=== PATIENT | male | born 1960 | race Caucasian/White ===

== ENCOUNTER 2018-06-19 17:03 | Emergency (ER) | payer BC, OTHER ==
[2018-06-19] MEDS ORDERED: Sodium Chloride 0.9% 10 ML Syringe FLUSH PRN (17:09)
--- NOTE | 2018-06-19 17:23 | EDM.PDOC ---
ED HPI GENERAL MEDICAL PROBLEM - General Chief Complaint: Abdominal Pain Stated Complaint: STOMACH PAIN Time Seen by Provider: 06/19/18 17:05 Source of Information: Reports: Patient, Family, RN, RN Notes Reviewed History Limitations: Reports: No Limitations - History of Present Illness INITIAL COMMENTS - FREE TEXT/NARRATIVE: Patient presents to the emergency room at [facility] for the evaluation of abdominal pain that started earlier this morning. The patient states that he had lower abdominal pelvic cramping and he really didn't think anything of it until after he ate some food from [employer]. The patient states that his pain now is located in the right upper quadrant and around the umbilicus. The patient does have a history of an umbilical hernia which was repaired last year. The patient has not had any fevers or chills. The pain is colicky in nature. The patient denies any diarrhea or vomiting. The patient has not had any changes in medications. The patient denies any shortness of breath or chest pain. The patient did try taking Pepto-Bismol without any relief. Otherwise no other concerns today. Onset: Today Onset Date: 06/19/18 Abdominal Pain Score (Numeric/FACES): 9 - Related Data Allergies Allergy/AdvReac Type Severity Reaction Status Date / Time No Known Allergies Allergy Verified 05/15/15 10:02 Home Meds: Home Meds Aspirin [Jamar Chewable] 81 mg PO QAM 06/20/14 [History] Fish Oil/[place]-3 Fatty Acids [Fish Oil] 1 gm PO QAM 06/20/14 [History] Omeprazole [Prilosec] 40 mg PO QAM 06/20/14 [History] Diclofenac Sodium [Voltaren] 75 mg DAILY 06/19/18 [History] Losartan/Hydrochlorothiazide [Losartan-HCTZ 100-12.5 MG] 1 tab DAILY 06/19/18 [ History] Past Medical History HEENT History: Reports: Allergic Rhinitis Other HEENT History: VOCAL CORD POLYP Cardiovascular History: Reports: High Cholesterol, Hypertension Respiratory History: Reports: None Gastrointestinal History: Reports: Colon Polyp Other Gastrointestinal History: UMBELLICAL HERNIA Other Genitourinary History: TORSION OF TESTIS. NEPHROLITHIASIS Musculoskeletal History: Reports: None Psychiatric History: Reports: None Endocrine/Metabolic History: Reports: None Hematologic History: Reports: None Other Immunologic History: MRSA Oncologic (Cancer) History: Reports: None Other Dermatologic History: DERMATOPHYTOSIS OF NAIL - Past Surgical History Head Surgeries/Procedures: Reports: None Oncologic Surgical History: Reports: None Dermatological Surgical History: Reports: Other (See Below) ED ROS GENERAL - Review of Systems Review Of Systems: See Below Constitutional: Denies: Fever, Chills Respiratory: Denies: Shortness of Breath, Cough Cardiovascular: Denies: Chest Pain, Palpitations GI/Abdominal: Reports: Abdominal Pain. Denies: Diarrhea, Nausea, Vomiting Skin: Reports: No Symptoms Neurological: Reports: No Symptoms ED EXAM, GI/ABD - Physical Exam Exam: See Below Exam Limited By: No Limitations General Appearance: Alert, No Apparent Distress Respiratory/Chest: No Respiratory Distress, Lungs Clear, Normal Breath Sounds Cardiovascular: Normal Peripheral Pulses, Regular Rate, Rhythm GI/Abdominal Exam: Guarding, Rigid, Tender (around umbilicus and RLQ), Abnormal Bowel Sounds (Hypoactive) Neurological: Alert, Oriented Skin Exam: Warm, Dry, Intact, Normal Color Course - Vital Signs Last Recorded V/S: Last Vital Signs Temp 37.0 C 06/19/18 19:04 Pulse 81 06/19/18 17:10 Resp 16 06/19/18 17:10 BP 157/76 H 06/19/18 17:10 Pulse Ox 96 06/19/18 17:10 - Orders/Labs/Meds Orders: Active Orders 24 hr Category Date Time Status Sodium Chloride 0.9% [Saline Flush] Med 06/19/18 17:09 Active 10 ml FLUSH ASDIRECTED PRN metroNIDAZOLE/Normal Saline [Flagyl 500 MG in NS 100 ML Med 06/19/18 19:20 Ordered ] 500 mg Premix Bag 1 bag IV ONETIME Peripheral IV Insertion Adult [OM.PC] Routine Oth 06/19/18 17:09 Ordered Medication Orders Metronidazole 500 mg/ Premix 100 mls @ 100 mls/hr IV ONETIME ONE Stop: 06/19/18 20:19 Sodium Chloride (Saline Flush) 10 ml FLUSH ASDIRECTED PRN PRN Reason: Keep Vein Open Labs: Laboratory Tests 06/19/18 06/19/18 06/19/18 Range/Units 17:19 17:19 17:19 WBC 14.1 H (4.0-10.0) x10^3/uL RBC 4.51 (4.5-6.0) x10^6/uL Hgb 14.4 (14.0-18.0) g/dL Hct 41.5 (40.0-52.0) % MCV 92.0 (78.0-93.0) fL MCH 31.9 (26.0-32.0) pg MCHC 34.7 (32.0-36.0) g/dL RDW Coeff of Calin 12.5 (10.0-15.0) % Plt Count 166 (130-400) x10^3/uL Neut % (Auto) 86.2 H (50.0-80.0) % Lymph % (Auto) 6.4 L (25.0-50.0) % [place] % (Auto) 7.2 (2.0-11.0) % Eos % (Auto) 0.1 (0.0-4.0) % Baso % (Auto) 0.1 L (0.2-1.2) % Sodium 138 (136-145) mmol/L Potassium 3.4 L (3.5-5.1) mmol/L Chloride 102 (98-107) mmol/L Carbon Dioxide 23 (21-32) mmol/L Anion Gap 16.4 (10-20) mmol/L BUN 16 (7-18) mg/dL Creatinine 0.8 (0.70-1.30) mg/dL Est Cr Clr Drug Dosing TNP Estimated GFR (MDRD) > 60 Glucose 111 H (74-106) mg/dL Lactic Acid 1.2 (0.4-2.0) mmol/L Calcium 9.2 (8.5-10.1) mg/dL Corrected Calcium 9.28 (8.5-10.1) mg/dL Total Bilirubin 0.6 (0.2-1.0) mg/dL AST 23 (15-37) U/L ALT 54 (16-63) U/L Alkaline Phosphatase 53 (46-116) U/L C-Reactive Protein 2.5 H (<=0.9) mg/dL Total Protein 7.4 (6.4-8.2) g/dL Albumin 3.9 (3.4-5.0) g/dL Globulin 3.5 Albumin/Globulin Ratio 1.11 Amylase 35 (25-115) U/L Lipase 107 (73-393) U/L Urine Color (YELLOW) Urine Appearance (CLEAR) Urine pH (5.0-8.0) Ur Specific [place] Urine Protein (NEGATIVE) mg/dL Urine Glucose (UA) (NEGATIVE) mg/dL Urine Ketones (NEGATIVE) mg/dL Urine Occult Blood (NEGATIVE) Urine Nitrite (NEGATIVE) Urine Bilirubin (NEGATIVE) Urine Urobilinogen (0.2) EU/dL Ur Leukocyte Esterase (NEGATIVE) 06/19/18 Range/Units 18:36 WBC (4.0-10.0) x10^3/uL RBC (4.5-6.0) x10^6/uL Hgb (14.0-18.0) g/dL Hct (40.0-52.0) % MCV (78.0-93.0) fL MCH (26.0-32.0) pg MCHC (32.0-36.0) g/dL RDW Coeff of Calin (10.0-15.0) % Plt Count (130-400) x10^3/uL Neut % (Auto) (50.0-80.0) % Lymph % (Auto) (25.0-50.0) % Meade % (Auto) (2.0-11.0) % Eos % (Auto) (0.0-4.0) % Baso % (Auto) (0.2-1.2) % Sodium (136-145) mmol/L Potassium (3.5-5.1) mmol/L Chloride (98-107) mmol/L Carbon Dioxide (21-32) mmol/L Anion Gap (10-20) mmol/L BUN (7-18) mg/dL Creatinine (0.70-1.30) mg/dL Est Cr Clr Drug Dosing Estimated GFR (MDRD) Glucose (74-106) mg/dL Lactic Acid (0.4-2.0) mmol/L Calcium (8.5-10.1) mg/dL Corrected Calcium (8.5-10.1) mg/dL Total Bilirubin (0.2-1.0) mg/dL AST (15-37) U/L ALT (16-63) U/L Alkaline Phosphatase (46-116) U/L C-Reactive Protein (<=0.9) mg/dL Total Protein (6.4-8.2) g/dL Albumin (3.4-5.0) g/dL Globulin Albumin/Globulin Ratio Amylase (25-115) U/L Lipase (73-393) U/L Urine Color Yellow (YELLOW) Urine Appearance Clear (CLEAR) Urine pH 7.0 (5.0-8.0) Ur Specific [place] 1.010 Urine Protein Negative (NEGATIVE) mg/dL Urine Glucose (UA) Negative (NEGATIVE) mg/dL Urine Ketones Negative (NEGATIVE) mg/dL Urine Occult Blood Negative (NEGATIVE) Urine Nitrite Negative (NEGATIVE) Urine Bilirubin Negative (NEGATIVE) Urine Urobilinogen 0.2 (0.2) EU/dL Ur Leukocyte Esterase Negative (NEGATIVE) Meds: Medications Generic Name Dose Route Start Last Admin Trade Name Freq PRN Reason Stop Dose Admin Metronidazole 500 mg/ Premix 100 mls @ 100 mls/hr 06/19/18 19:20 IV 06/19/18 20:19 ONETIME ONE Sodium Chloride 10 ml 06/19/18 17:09 Saline Flush FLUSH ASDIRECTED PRN Keep Vein Open Discontinued Medications Generic Name Dose Route Start Last Admin Trade Name Freq PRN Reason Stop Dose Admin Ceftriaxone Sodium 1 gm 06/19/18 19:20 Rocephin IVPUSH 06/19/18 19:21 STAT ONE Hydromorphone HCl 1 mg 06/19/18 19:20 Dilaudid IVPUSH 06/19/18 19:21 ONETIME ONE Iopamidol 100 ml 06/19/18 17:56 06/19/18 18:15 Isovue-300 (61%) IVPUSH 06/19/18 17:57 100 ml ONETIME ONE Administration Morphine Sulfate 2 mg 06/19/18 17:29 06/19/18 18:02 Morphine IVPUSH 06/19/18 17:30 2 mg ONETIME ONE Administration Ondansetron HCl 4 mg 06/19/18 17:29 06/19/18 18:00 Zofran IVPUSH 06/19/18 17:30 4 mg ONETIME ONE Administration Departure - Departure Time of Disposition: 19:22 Disposition: DC/Tfer to Acute Hospital 02 Condition: Good Clinical Impression: Appendicitis, acute Qualifiers: Acute appendicitis type: unspecified acute appendicitis type Qualified Code(s) : K35.80 - Unspecified acute appendicitis - Discharge Information *PRESCRIPTION DRUG MONITORING PROGRAM REVIEWED*: Not Applicable *COPY OF PRESCRIPTION DRUG MONITORING REPORT IN PATIENT JUDY: Not Applicable Forms: Interfacility Transfer [facility] ED Communication - ED Communication Date/Time Date: 06/19/18 Time Called: 19:10 - Discussed Case With (1) Discussed Case With (1): Admitting Provider (Dr. aDy, Surgery) - Conversation Summary Admitting Provider Agreed to Patient's Admission: Yes Patient Aware of Amendments fo Care Plan: Yes - Problem List Review Problem List Initiated/Reviewed/Updated: Yes - My Orders Last 24 Hours: My Active Orders 06/19/18 17:09 Sodium Chloride 0.9% [Saline Flush] 10 ml FLUSH ASDIRECTED PRN Peripheral IV Insertion Adult [OM.PC] Routine 06/19/18 19:20 metroNIDAZOLE/Normal Saline [Flagyl 500 MG in NS 100 ML] 500 mg Premix Bag 1 bag IV ONETIME - Assessment/Plan Last 24 Hours: My Active Orders 06/19/18 17:09 Sodium Chloride 0.9% [Saline Flush] 10 ml FLUSH ASDIRECTED PRN Peripheral IV Insertion Adult [OM.PC] Routine 06/19/18 19:20 metroNIDAZOLE/Normal Saline [Flagyl 500 MG in NS 100 ML] 500 mg Premix Bag 1 bag IV ONETIME Assessment:: Acute Uncomplicated Appendicitis Plan: Case discussed with Dr. Day, Surgery. Patient will get pre-op abx therapy prior to transfer. Patient will be sent to [facility] via [facility] ground. Patient and family agree with POC and wish to proceed.
[2018-06-19] MEDS ORDERED: Ondansetron 4 MG/2 ML SDV IVPUSH ONE (17:29)
[2018-06-19] MEDS ORDERED: Morphine 2 MG/ML Syringe IVPUSH ONE (17:29)
[2018-06-19 17:47] LABS: CHLORIDE,CL 102 mmol/L (98-107); SODIUM,NA 138 mmol/L (136-145)
[2018-06-19 17:48] LABS: ANION GAP 16.4 mmol/L (10-20)
[2018-06-19] MEDS ORDERED: Iopamidol 612 MG/ML 100 ML Bottle IVPUSH ONE (17:56)
[2018-06-19 18:45] VITALS: BP 157/76
--- NOTE | 2018-06-19 18:59 | CT ---
[id number] CT/CT Abdomen Pelvis W IV EXAM: ABDOMEN AND PELVIS CT WITH CONTRAST INDICATION: Abdominal pain. COMPARISON: None. DISCUSSION: The appendix is enlarged with adjacent inflammatory changes and a small appendicolith consistent with acute appendicitis. No abscess, free air or free fluid. Scattered colonic diverticula without evidence of diverticulitis. Small fat-containing left inguinal hernia. Scattered atherosclerotic plaque in the aorta and its major branches. Mild to moderate fatty infiltration of the liver. Small left renal cyst. Mild splenomegaly. The pancreas, adrenal glands, right kidney, and small bowel are normal in appearance. No adenopathy. IMPRESSION: 1. Acute uncomplicated appendicitis. Aakash Mohan MD 06/19/18 [id number] Thank you for allowing us to participate in the care of your patient.
[2018-06-19] MEDS ORDERED: cefTRIAXone 1 GM Vial IVPUSH ONE (19:20)
[2018-06-19] MEDS ORDERED: HYDROmorphone 1 MG/ML Syringe IVPUSH ONE (19:20)
[2018-06-19] MEDS ORDERED: metroNIDAZOLE/Normal Saline 500 MG in Premix Bag 1 BAG IV ONE (19:20)
== END 2018-06-19 20:00 | disposition short-term general hospital (02) ==
LOC: VM.ED 17:03
DX: K35.80 Unspecified acute appendicitis (principal); I10 Essential (primary) hypertension; E78.00 Pure hypercholesterolemia, unspecified; Z79.899 Other long term (current) drug therapy; Z79.82 Long term (current) use of aspirin
CPT/HCPCS: 36415; 74177; 80053; 81003; 82150; 83605; 83690; 85025; 86140; 96374; 96375; 99285-25; J0696; J1170; J2270; J2405; J3490; Q9967

== ENCOUNTER 2021-02-11 14:32 | Emergency (ER) | payer MEDICAID ==
[2021-02-11] MEDS ORDERED: Diphtheria,Pertussis(Acell),Tetanus Vaccine 0.5 ML Syringe IM ONE (14:58)
[2021-02-11 15:02] VITALS: BP 115/65; PULSE 82
--- NOTE | 2021-02-11 15:15 | EDM.PDOC ---
ED HPI GENERAL MEDICAL PROBLEM - General Chief Complaint: Laceration Stated Complaint: crush injury ON RIGHT POINTER FINGER Time Seen by Provider: 02/11/21 14:50 Source of Information: Reports: Patient History Limitations: Reports: No Limitations - History of Present Illness INITIAL COMMENTS - FREE TEXT/NARRATIVE: Patient was working on framing in an egress window at his house, he had to modify the frame and a cinder block was in the way. It came loose and fell 2 feet onto the right hand, mainly the right index finger. He had immediate pain, but could move the finger. open laceration, concern for needing sutures or tetanus. He is right handed. Onset: Today Right Finger-Index Pain Score (Numeric/FACES): 8 - Related Data Allergies Allergy/AdvReac Type Severity Reaction Status Date / Time atorvastatin [From Lipitor] Allergy Muscle Verified 02/11/21 14:56 Aches Home Meds: Home Meds Aspirin [Jamar Chewable] 81 mg PO QAM 06/20/14 [History] Fish Oil/[place]-3 Fatty Acids [Fish Oil] 1 gm PO QAM 06/20/14 [History] Omeprazole [Prilosec] 40 mg PO QAM 06/20/14 [History] Diclofenac Sodium [Voltaren] 75 mg DAILY 06/19/18 [History] Losartan/Hydrochlorothiazide [Losartan-HCTZ 100-12.5 MG] 1 tab DAILY 06/19/18 [History] Past Medical History HEENT History: Reports: Allergic Rhinitis Other HEENT History: VOCAL CORD POLYP Cardiovascular History: Reports: High Cholesterol, Hypertension Respiratory History: Reports: None Gastrointestinal History: Reports: Colon Polyp Other Gastrointestinal History: UMBELLICAL HERNIA Other Genitourinary History: TORSION OF TESTIS. NEPHROLITHIASIS Musculoskeletal History: Reports: None Psychiatric History: Reports: None Endocrine/Metabolic History: Reports: None Hematologic History: Reports: None Other Immunologic History: MRSA Oncologic (Cancer) History: Reports: None Other Dermatologic History: DERMATOPHYTOSIS OF NAIL - Past Surgical History Head Surgeries/Procedures: Reports: None GI Surgical History: Reports: Colonoscopy Oncologic Surgical History: Reports: None Dermatological Surgical History: Reports: Other (See Below) Social & Family History - Recreational Drug Use Recreational Drug Use: No Drug Use in Last 12 Months: No ED ROS GENERAL - Review of Systems Review Of Systems: See Below Constitutional: Reports: No Symptoms HEENT: Reports: No Symptoms Respiratory: Reports: No Symptoms Cardiovascular: Reports: No Symptoms Endocrine: Reports: No Symptoms GI/Abdominal: Reports: No Symptoms : Reports: No Symptoms Musculoskeletal: Reports: Other (right index finger pain ) Skin: Reports: Wound (rigth index finger, abrasions on the right hand) ED EXAM, SKIN/RASH Exam: See Below Exam Limited By: No Limitations General Appearance: Alert, WD/WN, No Apparent Distress Eye Exam: Bilateral Eye: EOMI Nose: Normal Inspection Throat/Mouth: Normal Oropharynx, Normal Voice, No Airway Compromise Head: Atraumatic Neck: Normal Inspection Respiratory/Chest: No Respiratory Distress, Normal Breath Sounds, No Accessory Muscle Use Cardiovascular: Regular Rate, Rhythm Extremities: Other (right index finger with contusion/echymosis of the proximal phalynx. abrasion of 1.5 cm with tissue loss and laceration partial thickens of 1 cm. Full flexion against resistance with dip and pip isolated. NV intact distally small abrasions on the hand from previous injury) Neurological: Alert, Oriented ED SKIN PROCEDURES - Laceration/Wound Repair Digit - 2nd (Index) Appearance: Subcutaneous, Clean Distal NVT: Neuro & Vascular Intact, No Tendon Injury Anesthetic Type: Digital Local Anesthesia - Lidocaine (Xylocaine): 1% Plain Local Anesthetic Volume: 3cc Skin Prep: Isopropyl Alcohol (Alcohol), Saline Exploration/Debridement/Repair: Wound Explored, In a Bloodless Field, Explored to Base Closed with: Sutures Lac/Wound length In cm: 1.0 Suture Size: 4-0 # of Sutures: 4 Suture Type: Nylon, Interrupted Sterile Dressing Applied: Nurse Tetanus Status Addressed: Yes (given) Complications: No Progress/Comments: note that there was superficial tear/ debridement of the top layer of skin that was laid back down in anatomical position. sutures were at the PIP. NV intact prior to block with good muscle strength with isolating dip and PIP to flexion, no concern for tendon injury Course - Vital Signs Last Recorded V/S: Last Vital Signs Temp 36.7 C 02/11/21 14:42 Pulse 82 02/11/21 14:42 Resp 18 02/11/21 14:42 BP 115/65 02/11/21 14:42 Pulse Ox 95 02/11/21 14:42 - Orders/Labs/Meds Orders: Active Orders 24 hr Category Date Time Status Vaccine to be Administered/Admin Charge [RC] ASDIRECTED Care 02/11/21 14:59 Ordered Fingers Second Digit Rt F6 [CR] Stat Exams 02/11/21 14:51 Ordered Meds: Medications Discontinued Medications Generic Name Dose Route Start Last Admin Trade Name Davis PRN Reason Stop Dose Admin Diphtheria/Tetanus/Acell Pertussis 0.5 ml 02/11/21 14:58 02/11/21 15:10 Diphtheria,Pertussis(Acell),Tetanus Vaccine 0.5 Ml Syringe IM 02/11/21 14:59 0.5 ml .ONCE ONE Administration Lidocaine HCl 5 ml 02/11/21 14:57 02/11/21 15:10 Lidocaine 1% 5 Ml Sdv INJECT 02/11/21 14:58 5 ml ONETIME ONE Administration - Radiology Interpretation Free Text/Narrative:: no fracture seen in the proximal phalanyx. DJD in the DIP, no pain at this joint. preliminary read Departure - Departure Time of Disposition: 15:29 Disposition: Home, Self-Care 01 Condition: Good Clinical Impression: Crush injury, Laceration of finger - Discharge Information *PRESCRIPTION DRUG MONITORING PROGRAM REVIEWED*: No *COPY OF PRESCRIPTION DRUG MONITORING REPORT IN PATIENT JUDY: No Instructions: RICE Therapy for Routine Care of Injuries, [id number], Laceration Care, Adult, VIS, Tetanus, Diphtheria (Td); Tetanus, Diphtheria, Pertussis (Tdap) - CDC Referrals: Clem Olvera PA-C [Primary Care Provider] - Forms: ED Department Discharge Additional Instructions: Ice the area. keep the area clean and bandaged. return for signs of infection. sutures should be removed in 2 weeks. Elevate the area to help with swelling. No fracture is seen. tetanus was updated and will be good for 10 years, make note for your records. Sepsis Event Note (ED) - Focused Exam Vital Signs: Vital Signs Temp Pulse Resp BP Pulse Ox 02/11/21 14:42 36.7 C 82 18 115/65 95 - My Orders Last 24 Hours: My Active Orders 02/11/21 14:51 Fingers Second Digit Rt F6 [CR] Stat 02/11/21 14:59 Vaccine to be Administered/Admin Charge [RC] ASDIRECTED - Assessment/Plan Last 24 Hours: My Active Orders 02/11/21 14:51 Fingers Second Digit Rt F6 [CR] Stat 02/11/21 14:59 Vaccine to be Administered/Admin Charge [RC] ASDIRECTED
--- NOTE | 2021-02-11 15:38 | CR ---
[id number] RAD/RAD Fingers Right Exam: RAD Fingers Right Indication:CRUSH INJURY. Comparison: No prior imaging for comparison. Discussion/Impression: Lateral view demonstrates a bulky dorsal osteophyte arising from the distal phalanx at the DIP articulation. Lucency at the base of the osteophyte is nonspecific but could represent a nondisplaced fracture in the setting of injury. Correlate with site of pain. Lateral view also demonstrates what appears to be laceration along the volar soft tissues at the level of the proximal phalanx. No other potential fracture identified. 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 Kendall Clinton MD 02/11/21 1537 Thank you for allowing us to participate in the care of your patient.
== END 2021-02-11 15:37 | disposition home or self-care (01) ==
LOC: VM.ED 14:32
DX: S61.210A Laceration without foreign body of right index finger without damage to nail, initial encounter (principal); S67.190A Crushing injury of right index finger, initial encounter; E78.00 Pure hypercholesterolemia, unspecified; I10 Essential (primary) hypertension; Z88.8 Allergy status to other drugs, medicaments and biological substances; Z79.82 Long term (current) use of aspirin; Z79.899 Other long term (current) drug therapy; Z23 Encounter for immunization; W17.89XA Other fall from one level to another, initial encounter; W26.8XXA Contact with other sharp object(s), not elsewhere classified, initial encounter
CPT/HCPCS: 12001; 73140-F6; 90471; 90715; 99283-25